=== PATIENT | female | born 1965 | race Caucasian/White ===

== ENCOUNTER 2019-04-06 07:02 | Day surgery (SDC) | payer BC ==
[~2019-04-06] VITALS: Ht 162.6 cm; Wt 64.9 kg
[2019-04-06] MEDS ORDERED: MIDAZOLAM HCL 5 MG/5 ML VIAL IVP ONE (08:50)
[2019-04-06] MEDS ORDERED: NS IRRIG SOLN 5000 ML IR ONE (08:50)
[2019-04-06] MEDS ORDERED: KETOROLAC TROMETHAMINE 30 MG VIAL IVP ONE (08:50)
[2019-04-06] MEDS ORDERED: SEVOFLURANE 15 MIN GAS INH ONE (08:50)
[2019-04-06] MEDS ORDERED: LR 1,000 ML IV.SOLN IV ONE (08:50)
[2019-04-06] MEDS ORDERED: PROPOFOL 200MG/ 20ML VIAL (DIPRIVAN) IV ONE (08:50)
[2019-04-06] MEDS ORDERED: ONDANSETRON HCL 4 MG/2 ML VIAL IVP ONE (08:50)
[2019-04-06] MEDS ORDERED: fentaNYL CITRATE/PF 100 MCG/2 ML AMP IVP ONE (08:50)
[2019-04-06] MEDS ORDERED: LR 1,000 ML IV SCH (09:35)
[2019-04-06] MEDS ORDERED: MORPHINE 4 MG/ML INJ. SYRINGE IVP PRN ×2 (09:45)
[2019-04-06] MEDS ORDERED: METOCLOPRAMIDE HCL 10 MG/2 ML VIAL IVP PRN (09:45)
[2019-04-06] MEDS ORDERED: IBUPROFEN 800 MG TABLET PO PRN (10:00)
[2019-04-06] MEDS ORDERED: ONDANSETRON HCL 4 MG/2 ML VIAL IM PRN (10:00)
[2019-04-06] MEDS ORDERED: MORPHINE 4 MG/ML INJ. SYRINGE ONE ×2 (10:26→10:57)
[2019-04-06] MEDS: MORPHINE 4 MG/ML INJ. SYRINGE IVP PRN ×3 (10:31→11:01)
[2019-04-06] MEDS ORDERED: ONDANSETRON HCL 4 MG/2 ML VIAL ONE (12:28)
[2019-04-06] MEDS ORDERED: OXYCODONE/ACETAMINOPHEN 5-325 TABLET PO PRN ×2 (12:45)
[2019-04-06 13:04] VITALS: BP_SYST 103
== END 2019-04-06 13:20 | disposition home or self-care (01) ==
LOC: SMU 07:02 → SDS 07:02
PROVIDERS: ATTEND Obstetrics & Gynecology
DX: N95.0 Postmenopausal bleeding (principal); N84.0 Polyp of corpus uteri; K21.9 Gastro-esophageal reflux disease without esophagitis; Z79.899 Other long term (current) drug therapy; Z98.890 Other specified postprocedural states
CPT/HCPCS: 58558; 88305; J1885; J2250; J2270; J2405; J2704; J3010; J7120